=== PATIENT | male | born 1985 | race African-American/Black ===

== ENCOUNTER 2019-04-20 08:00 | Emergency (ER) | payer OTHER, SELFPAY ==
[2019-04-20] MEDS ORDERED: Ibuprofen 800 MG TAB ONE (08:17)
--- NOTE | 2019-04-20 08:39 | RAD ---
EXAM: 3 views of the right ankle HISTORY: Ankle pain after tripping over a bag of concrete COMPARISON: None FINDINGS: 3 views of the right ankle shows no evidence of acute fracture or dislocation. A well corti cated ossific fragment is seen adjacent to the lateral malleolus. No soft tissue swelling is seen. No degenerative changes are present. IMPRESSION: No evidence of acute osseous abnormality.
--- NOTE | 2019-04-20 08:45 | RAD ---
THREE VIEWS RIGHT FOOT: HISTORY: Right foot pain after tripping over a bag of concrete. FINDINGS: The Lisfranc joint is normally aligned. There is no evidence of a fracture, dislocation, or other os seous abnormality involving the right foot. IMPRESSION: No acute osseous abnormality. POS: PADMINI
== END 2019-04-20 09:26 | disposition home or self-care (01) ==
LOC: ERS 08:00
DX: M25.571 Pain in right ankle and joints of right foot (principal); J45.909 Unspecified asthma, uncomplicated; F17.210 Nicotine dependence, cigarettes, uncomplicated; W18.09XA Striking against other object with subsequent fall, initial encounter

== ENCOUNTER 2019-11-26 20:15 | Emergency (ER) | payer SELFPAY ==
--- NOTE | 2019-11-26 21:03 | RAD ---
LUMBAR SPINE: 11/26/19 HISTORY: Back pain. Lumbar vertebrae maintain normal height and alignment. Disc spaces are maintained. IMPRESSION: Unremarkable lumbar spine. POS: ESTRADA
[2019-11-26] MEDS ORDERED: Ketorolac Tromethamine 30 MG/ML VIAL ONE (21:12)
== END 2019-11-26 21:22 | disposition home or self-care (01) ==
LOC: ERS 20:15
DX: S39.012A Strain of muscle, fascia and tendon of lower back, initial encounter (principal); F17.210 Nicotine dependence, cigarettes, uncomplicated; J45.909 Unspecified asthma, uncomplicated; X50.1XXA Overexertion from prolonged static or awkward postures, initial encounter
CPT/HCPCS: 72100; J1885